=== PATIENT | female | born 1995 ===

== ENCOUNTER 2022-03-08 10:32 | Emergency (ER) | payer MEDICAID ==
[2022-03-08] MEDS ORDERED: Penicillin G Benzathine 1,200,000 Units/2 ML Syringe IM ONE (11:42)
[2022-03-08 11:55] LABS: CORONAVIRUS COVID-19 NAA NEGATIVE (NEGATIVE)
== END 2022-03-08 13:06 | disposition home or self-care (01) ==
LOC: JP.ED 10:32
DX: J02.0 Streptococcal pharyngitis (principal); Z87.891 Personal history of nicotine dependence; Z20.822 Contact with and (suspected) exposure to COVID-19
CPT/HCPCS: 0241U; 87880; 96372; 99283; J0561